=== PATIENT | male | born 1980 | race Two or more races ===

== ENCOUNTER 2022-12-08 06:00 | Emergency (ER) | payer SELFPAY ==
[~2022-12-08] VITALS: Ht 175.3 cm; Wt 88.5 kg
--- NOTE | 2022-12-08 06:05 | NUR ---
[id number] from home for RLQ abd pain since 5am, pt to bed 2, not in acute distress, no sob. no cp placed on monitor, vss. pending er provider brenna
[2022-12-08] MEDS ORDERED: ONDANSETRON HCL/PF 4 MG/2 ML VIAL ONE (06:14)
[2022-12-08] MEDS ORDERED: MORPHINE SULFATE INJ 4 MG/ML DISP.SYRIN ONE (06:14)
[2022-12-08 06:27] LABS: BILIRUBIN,URINE 1+ (NEGATIVE); COLOR,URINE YELLOW (YELLOW); LEUKOCYTE ESTERASE ,URINE NEGATIVE (NEGATIVE); NITRITE, URINE NEGATIVE (NEGATIVE); PH,URINE 5.5 (5.0-8.0); PROTEIN,URINE NEGATIVE (NEGATIVE); UGLUCOSE NEGATIVE (NEGATIVE); UROBILINOGEN,URINE 0.2 EU/dL (0.2)
[2022-12-08] MEDS ORDERED: IV NS 0.9% 1,000 ML BAG IV ONE (06:30)
[2022-12-08] MEDS ORDERED: MORPHINE SULFATE INJ 2 MG/ML DISP.SYRIN IV ONE (06:30)
[2022-12-08] MEDS ORDERED: ONDANSETRON HCL/PF 4 MG/2 ML VIAL IVP ONE (06:30)
[2022-12-08 06:32] LABS: BASOPHILS # (AUTO) 0.1 K/uL (0.0-0.2); BASOPHILS % (AUTO) 0.8 % (0.0-2.0); EOSINOPHILS % (AUTO) 1.9 % (0.0-6.0); HEMATOCRIT 42 % (39-51); LYMPHOCYTES # (AUTO) 3.5 K/uL (0.8-4.8); LYMPHOCYTES % (AUTO) 41.6 % (20.0-44.0); MEAN CORPUSCULAR HGB CONC 33 g/dl (31.0-36.0); MEAN CORPUSCULAR VOLUME 91 fL (80-96); MONOCYTES # (AUTO) 0.6 K/uL (0.1-1.30); MONOCYTES % (AUTO) 6.8 % (2.0-12.0); NEUTROPHILS # (AUTO) 4.1 K/uL (1.8-8.9); NEUTROPHILS % (AUTO) 48.9 % (43.0-81.0); PLATELET COUNT (AUTO) 181 K/uL (150-450); RED BLOOD CELL COUNT(AUTO) 4.63 MIL/uL (4.5-6.0); WHITE BLOOD COUNT (AUTO) 8.5 K/uL (4.3-11.0)
[2022-12-08 06:51] LABS: BACTERIA,URINE Rare /HPF (None Seen); SQUAMOUS EPITHELIAL CELL,UR Few /HPF (None Seen); WBC,URINE 0-2 /HPF (0-3)
--- NOTE | 2022-12-08 06:51 | NUR ---
pt to ct
[2022-12-08 07:13] LABS: CALCIUM, SERUM 8.8 mg/dL (8.5-10.1); POTASSIUM 3.8 mmol/L (3.5-5.1)
[2022-12-08 07:24] LABS: ALBUMIN 3.8 g/dL (3.4-5.0); BILIRUBIN,DIRECT 0.1 mg/dL (0.0-0.2); BILIRUBIN,TOTAL 0.2 mg/dL (0.2-1.0)
--- NOTE | 2022-12-08 08:00 | NUR ---
DR HAMEED AT BEDSIDE
[2022-12-08] MEDS ORDERED: HYDR-4209 PO (08:07)
[2022-12-08] MEDS ORDERED: ONDA4TAB5 PO (08:07)
[2022-12-08] MEDS ORDERED: TAMS-12 PO (08:07)
[2022-12-08] MEDS ORDERED: IBUP-1955 PO (08:07)
--- NOTE | 2022-12-08 08:17 | NUR ---
CHECKED IVF, INFUSING NOW, TOLEREATED WELL
[2022-12-08] MEDS ORDERED: KETOROLAC TROMETHAMINE INJ 30 MG/ML VIAL ONE (08:26)
[2022-12-08] MEDS ORDERED: KETOROLAC TROMETHAMINE INJ 30 MG/ML VIAL IV ONE (08:30)
--- NOTE | 2022-12-08 08:40 | NUR ---
IV removed. Catheter intact and site benign. Pressure and 4x4 applied to site. No bleeding noted.
--- NOTE | 2022-12-08 08:42 | NUR ---
Patient discharged to home in stable condition. Written and verbal after care instructions given. Patient verbalizes understanding of instruction.
[2022-12-08 08:43] VITALS: BP 130/78
== END 2022-12-08 08:44 | disposition home or self-care (01) ==
LOC: ER 06:03
DX: N20.0 Calculus of kidney (principal); R30.0 Dysuria; R31.9 Hematuria, unspecified
CPT/HCPCS: 99285; 74176; 96374; 96375; 96361; 85025; 80048; 83690; 80076; 81001; 36415; J2270; J1885; J2405; J7030

== ENCOUNTER 2024-10-04 22:48 | Emergency (ER) | payer SELFPAY ==
[~2024-10-04 22:48] MED LIST: HYDR-4209 PO; IBUP-1955 PO; ONDA4TAB5 PO; TAMS-12 PO
== END 2024-10-05 02:04 | disposition left against medical advice (07) ==
LOC: ER 22:49
DX: R06.02 Shortness of breath (principal); R07.9 Chest pain, unspecified; Z53.21 Procedure and treatment not carried out due to patient leaving prior to being seen by health care provider